=== PATIENT | male | born 1950 | race Caucasian/White ===

== ENCOUNTER 2016-08-14 22:02 | Inpatient (IN) | payer MEDICARE, OTHER ==
--- NOTE | ~2016-08-14 | DS ---
Discharge Summary [facility] [address] [place]. [address] NAME: SUHAS GLORIA : 50 STATUS : DIS IN PAT#: [id number] AGE: 66 ADM/REG DATE : 08/14/16 MR#: [id number] REPORT SERV DATE: 08/30/16 DICTATED BY: ALTON ALVARENGA DATE: 08/29/16 REPORT STATUS : Draft TRANSCRIBED BY: REJI DATE: 08/29/16 Data Collection from hospitalization DISCHARGE DIAGNOSES: 1. Coronary artery disease. 2. Acute anterior wall myocardial sjkyyomlmm-BP-wuqtcsq elevation myocardial infarction. 3. Hypertension. 4. Hypercholesterolemia. 5. Tobacco use. CONSULTATION: Dr. Liborio Alonso. PROCEDURES PERFORMED: 1. Cardiac catheterization, 08/14/2016. 2. Urgent coronary artery bypass grafting x3 with BUCK to the LAD; saphenous vein graft to the posterior descending artery; saphenous vein graft to the second obtuse marginal; VasoView vein harvesting, right lower extremity, 08/15/2016. DISCHARGE MEDICATIONS: Cordarone 200 mg twice a day, Halfprin 81 mg daily, Coreg 3.125 mg twice a day, Xodol one tablet every four hours as needed, Imdur 30 mg daily, Cozaar 12.5 mg daily, Prilosec 40 mg daily, Crestor 20 mg at bedtime. CONDITION AT DISCHARGE: Stable. DISPOSITION: The patient was discharged home on an 1800-calorie cardiac/diabetic diet with activities as instructed. He would follow up with [facility], 09/12/[address] Valentín Verdugo, 09/19/2016. He would follow up at cardiac rehab, 09/10/2016. HOSPITAL COURSE: This is a 66-year-old man, who had been followed by Dr. Verdugo with a cardiac history of multiple stents in the past. He had never undergone coronary artery bypass grafting. He has been doing well from a cardiovascular standpoint, but had been off aspirin for approximately one week prior to prostate biopsy earlier on the day of this presentation. On 08/14/2016, the patient presented to [facility] complaining of severe chest pain. EKG demonstrated marked ST elevation in the early precordial leads consistent with acute anterior wall myocardial infarction and code STEMI was called. He was treated with aspirin, heparin, nitrates, and analgesics. He was transferred to the [facility] and was still having severe chest pain with marked ST elevations on the monitor. He was given additional analgesics and he had sudden relief of the chest pain and normalization of his ST-segment. It was felt that he would need to undergo cardiac catheterization. He was taken to the cardiac analytical lab analyst, where he underwent the above-mentioned procedure by Dr. Liborio Alonso. He tolerated this well and there were no complications. The catheterization showed three-vessel coronary artery disease, but nothing acutely blocked. It was felt that he would need to undergo coronary artery bypass grafting. The following day, he was taken to the operating room where he underwent the above-mentioned procedure. He tolerated this well and there were no complications. On postop day 1, he had shallow inspiration. His incisions were covered. He had positive bowel sounds. On the , O2 was being weaned. He had decreased breath sounds in his lung bases. was started. White count was 16.7. Chest tubes and pacing wires were going to be removed. Discharge Summary [facility] [address] [place]. [address] NAME: SUHAS GLORIA : 50 STATUS : DIS IN PAT#: [id number] AGE: 66 ADM/REG DATE : 08/14/16 MR#: [id number] REPORT SERV DATE: 08/30/16 DICTATED BY: ALTON ALVARENGA DATE: 08/29/16 REPORT STATUS : Draft TRANSCRIBED BY: REJI DATE: 08/29/16 He was on Coreg, aspirin, and Crestor. Routine postop care continued. SCDs/TEDs were in place. He was in a normal sinus rhythm. On 08/19/2016, he had no new complaints. He had no chest pain or palpitations. His incisions were clean, dry, and intact. He had some sternal tenderness. Discharge planning was performed. We encouraged him to ambulate in the [place]. O2 was being weaned. His pulmonary status was improving. On 08/21/2016, he was awake and alert. He was up sitting in a chair. He continued to do well. Discharge instructions were given. Due to his improved and stable condition, he was discharged home with the above-stated instructions. Information collected by: Sarina Lindquist I submit the above information as my discharge summary. TG/MODL Alton Alvarenga M.D. / [id number] CC: Fransisco Samaniego M.D.
--- NOTE | ~2016-08-14 | CN ---
Consultation Report [facility] [address] [place]. [address] NAME: SUHAS GLORIA : 50 STATUS : ADM IN PAT#: [id number] AGE: 66 ADM/REG DATE : 08/14/16 MR#: [id number] REPORT SERV DATE: 08/16/16 DICTATED BY: ALTON ALVARENGA DATE: 08/15/16 REPORT STATUS : Draft TRANSCRIBED BY: MODL DATE: 08/15/16 CONSULT DATE OF CONSULTATION: 08/15/2016 REASON FOR REFERRAL: Evaluation for coronary artery bypass grafting. HISTORY: The patient is a 66-year-old, white male, patient of Dr. Verdugo with a history of multiple stents in the past. He recently had been doing well but had been held off his aspirin for one week prior to a prostate biopsy on the . After the biopsy, he presented to [facility] complaining of severe chest pain and fatigue. EKG showed marked ST elevations consistent with acute myocardial infarction. A code STEMI was called. He was treated with aspirin, heparin, nitrates, and transferred to the [facility]. After presentation to the [facility], his chest pain had subsided after analgesics and heparin. Cardiac Cath was then performed by Dr. Liborio Alonso which showed three-vessel coronary artery disease but nothing acutely blocked. PAST MEDICAL HISTORY: Significant for hypertension, hypercholesterolemia, coronary artery disease. PAST SURGICAL HISTORY: Unknown. SOCIAL HISTORY: He does smoke occasional alcohol. MEDICATIONS: Carvedilol, Crestor, aspirin, and losartan. ALLERGIES: NO KNOWN DRUG ALLERGIES. FAMILY HISTORY: Significant for coronary artery disease in his father's family. REVIEW OF SYSTEMS: Otherwise negative that which was stated above. PHYSICAL EXAMINATION: VITAL SIGNS: He is afebrile and vital signs are currently stable. HEENT: Normocephalic, atraumatic with no scleral icterus. NECK: Supple with no thyromegaly. CHEST: Clear to auscultation bilaterally. HEART: Regular rate and rhythm. No murmurs, rubs, or gallops. ABDOMEN: Soft, nontender, nondistended. EXTREMITIES: Warm with 1+ distal pulses. No clubbing, cyanosis, or edema. MUSCULOSKELETAL: Grossly intact. NEUROLOGIC: Grossly intact. Consultation Report [facility] [address] [place]. [address] NAME: SUHAS GLORIA : 50 STATUS : ADM IN PAT#: [id number] AGE: 66 ADM/REG DATE : 08/14/16 MR#: [id number] REPORT SERV DATE: 08/16/16 DICTATED BY: ALTON ALVARENGA DATE: 08/15/16 REPORT STATUS : Draft TRANSCRIBED BY: REJI DATE: 08/15/16 STUDIES: I did review his cardiac catheterization. Agree with three-vessel coronary artery disease not amenable to percutaneous intervention. PLAN: Three-vessel coronary artery disease in need of coronary artery bypass grafting. This is being scheduled for today in an urgent manner due to his ST-elevation myocardial infarction presentation. I have explained all risks, benefits, and alternatives of surgery to him and his family including but not limited to, bleeding, infection, stroke, and . They understand these risks and wished to proceed with surgery. MARION/REJI Alton Alvarenga M.D. / [id number] CC: Liborio Alonso M.D.
--- NOTE | ~2016-08-14 | OP ---
Record Of Operation [facility] [address] [place]. [address] NAME: SUHAS GLORIA : 50 STATUS : ADM IN PAT#: [id number] AGE: 66 ADM/REG DATE : 08/14/16 MR#: [id number] REPORT SERV DATE: 08/15/16 DICTATED BY: ALTON ALVARENGA DATE: 08/15/16 REPORT STATUS : Draft TRANSCRIBED BY: MODCorby DATE: 08/15/16 DATE OF PROCEDURE: 08/15/2016 PREOPERATIVE DIAGNOSIS: Multivessel coronary artery disease, ST-elevation myocardial infarction. POSTOPERATIVE DIAGNOSIS: Multivessel coronary artery disease, ST-elevation myocardial infarction. PROCEDURE: 1. Urgent coronary artery bypass grafting x3 with left internal mammary artery to the left anterior descending artery, saphenous vein graft to the posterior descending artery, saphenous vein graft to the 2nd obtuse marginal. 2. VasoView vein harvesting, right lower extremity. SURGEON: Alton Alvarenga M.D. PULL OVER MACHINE OPERATOR: Eladio. ANESTHESIA: Elton Pope M.D. CARDIOPULMONARY BYPASS TIME: 75 minutes. CROSS-CLAMP TIME: 60 minutes. FINDINGS: Good conduit and targets, normal ejection fraction. Wires were atrial and ventricular x2. Tubes were left pleural x1 and mediastinal x2. COMPLICATIONS: None. CONDITION: Fair to the ICU on no drips and normal sinus rhythm. PROCEDURE IN DETAIL: After informed consent was obtained from the patient, he was brought to the operating room, laid in a supine position, and general anesthesia was induced. Transesophageal echocardiogram was attempted but due to his Jj's esophagitis, was abandoned. He was prepped and draped in normal fashion. VasoView vein harvesting commenced on the right lower extremity by making an incision just medial to the right knee and dissection carried proximally and distally. All tributaries were coagulated. Counter incisions were made and the vein was removed. All tributaries were then clipped. Skin incisions were closed using Vicryl sutures. A median sternotomy was performed in usual fashion and the left yanci-sternum elevated using a Rultract retractor. The left pleura was taken down in its entirety and the left internal mammary artery harvested from the chest wall using Bovie electrocautery. All tributaries were clipped. After systemic heparinization, the distal end was severed from the chest wall and good blood flow was noted. Papaverine was soaked on the vessel wall. Pericardium was opened in the midline and tacked to the skin using multiple silk sutures. Aortic cannulation was performed in the Record Of Operation [address] [place]. [address] NAME: SUHAS GLORIA : 50 STATUS : ADM IN PAT#: [id number] AGE: 66 ADM/REG DATE : 08/14/16 MR#: [id number] REPORT SERV DATE: 08/15/16 DICTATED BY: ALTON ALVARENGA DATE: 08/15/16 REPORT STATUS : Draft TRANSCRIBED BY: MODL DATE: 08/15/16 proximal aortic arch and venous cannulation performed in the right atrial appendage. The patient was placed on cardiopulmonary bypass and cooled to approximately 35 degrees Celsius. A cardioplegia/vent cannula was placed in the ascending aorta. Cross-clamp was placed across the aorta and 800 mL of cold blood cardioplegia given at the aortic root with excellent arrest. Base of the heart was elevated and the posterior descending artery identified. This was dissected using a Otero blade and extended using Augustin scissors. Saphenous vein was placed in a reverse manner, a masters created, and an end-to-side anastomosis was performed using a running 7-0 Deklene suture. Heart was filled and the vein sized to the ascending aorta around the right side of the heart. Antegrade cardioplegia was given. The 2nd obtuse marginal artery was then identified, dissected using a Otero blade, and extended using Augustin scissors. Remaining portion of the saphenous vein was placed in a reverse manner, a masters created, and an end-to-side anastomosis was performed using a running 7-0 Deklene suture. Heart was filled and the vein sized to the ascending aorta around the left side of the heart. Antegrade cardioplegia was given. Midportion of the LAD artery was identified, dissected using a Otero blade, and extended using Augustin scissors. Distal end of the mammary artery was fashioned to a masters and end-to-side anastomosis was performed using a running 8-0 Deklene suture. Bulldog was released and excellent blood flow was noted distally. Fascia of the mammary was tacked down to the LV wall using two 6-0 Prolene sutures. Antegrade cardioplegia was given. An 11 blade knife was used to make two separate stab incisions on the ascending aorta and a 4.5 mm punch used to create two separate aortotomies. Two separate proximal anastomoses were performed using a running 6-0 Prolene suture for each. Heart was filled and de-aired through the root vent. Cross-clamp was removed. Ventricular pacing wires were placed on the right ventricular surface, and atrial pacing wires were placed on the right atrial surface. A left pleural and posterior pericardial chest tube were placed. After the patient achieved normothermia, he was weaned from cardiopulmonary bypass without difficulty. Doppler flow analysis was performed on all three tributaries and all three had excellent flow. Protamine was administered. The patient was decannulated. After surgical hemostasis was achieved, an anterior pericardial chest tube was placed and the sternum reapproximated using the sternal cable system. The skin, subcutaneous, and subcuticular tissue were closed using running Vicryl and Monocryl sutures. Overall, the patient tolerated procedure well and was transported to the ICU in fair condition on no drips in normal sinus rhythm. CCR/MODL Alton Alvarenga M.D. / [id number] CC: Liborio Alonso M.D.
--- NOTE | ~2016-08-14 | HP ---
History And Physical [facility] [address] [place]. [address] NAME: SUHAS GLORIA : 50 STATUS : ADM IN PAT#: [id number] AGE: 66 ADM/REG DATE : 08/14/16 MR#: [id number] REPORT SERV DATE: 08/15/16 DICTATED BY: MICHELLE ALONSO DATE: 08/14/16 REPORT STATUS : Draft TRANSCRIBED BY: MODCorby DATE: 08/14/16 DATE OF ADMISSION: 08/14/2016 HISTORY OF PRESENT ILLNESS: The patient is a 66-year-old white male, who was followed by Dr. Verdugo with a cardiac history of multiple stents in the past. He has never undergone coronary artery bypass grafting. The patient had been doing well from a cardiovascular standpoint, but had been off aspirin for approximately 1 week prior to prostate biopsy earlier in the day, the day of presentation. On 08/14/2016, the patient presented to [facility] complaining of severe chest pain. EKG demonstrated marked ST elevated in the early precordial leads consistent with acute anterior wall myocardial infarction, a code STEMI was called. He was treated with aspirin, heparin, nitrates, and analgesics. He was transferred to the labor arbitrator hearing office. On presentation to the labor arbitrator hearing office at the [facility], he was still having severe chest pain, with marked ST elevated elevations on the monitor. He was given additional analgesics, and he had sudden relief of the chest and normalization of his ST segements. The patient denies recent similar chest pains. PAST MEDICAL HISTORY: Remarkable for hypertension, elevated cholesterol, and coronary artery disease. SOCIAL HISTORY: He continues to smoke. MEDICATIONS: His outpatient medications include carvedilol 3.125 mg b.i.d., Crestor daily, aspirin daily, and Losartan daily. ALLERGIES: HE DENIES DRUG ALLERGIES. FAMILY HISTORY: Noncontributory. REVIEW OF SYSTEMS: Negative except as above. PHYSICAL EXAMINATION: GENERAL: He is a well-developed, well-nourished white male in no acute distress. He is alert, oriented, and cooperative. NECK: He has no jugular venous distension. CHEST: Clear. CARDIAC: Unremarkable. ABDOMEN: Benign. EXTREMITIES: Without cyanosis, clubbing, or edema. IMPRESSION: Acute anterior wall myocardial infarction - STEMI. PLAN: Proceed with emergent coronary angiography. Further workup with therapy would be History And Physical [facility] [address] [place] [address] NAME: SUHAS GLORIA : 50 STATUS : ADM IN PAT#: [id number] AGE: 66 ADM/REG DATE : 08/14/16 MR#: [id number] REPORT SERV DATE: 08/15/16 DICTATED BY: MICHELLE ALONSO DATE: 08/14/16 REPORT STATUS : Draft TRANSCRIBED BY: REJI DATE: 08/14/16 based on results of the initial diagnostic testing. TR/REJI Michelle Alonso M.D. / [id number] CC: Valentín Verdugo Jr., M.D.
--- NOTE | ~2016-08-14 | OP ---
Record Of Operation [facility] [address] [place]. [address] NAME: SUHAS GLORIA : 50 STATUS : ADM IN PAT#: [id number] AGE: 66 ADM/REG DATE : 08/14/16 MR#: [id number] REPORT SERV DATE: 08/15/16 DICTATED BY: MICHELLE ALONSO DATE: 08/14/16 REPORT STATUS : Draft TRANSCRIBED BY: MODL DATE: 08/14/16 DATE OF PROCEDURE: 08/14/2016 CARDIAC CATHETERIZATION REPORT BULK PLANT SUPERVISOR: Michelle Alonso M.D. INDICATION FOR PROCEDURE: Acute myocardial infarction - STEMI. POSTPROCEDURE DIAGNOSIS: Acute myocardial infarction - ST-segment elevation myocardial infarction. HEMODYNAMICS: The left ventricular end-diastolic pressure was 80 mmHg, and there was no gradient or pullback across the aortic valve. DESCRIPTION OF PROCEDURE: The patient was brought to the livestock laborer emergently by an ambulance with the diagnosis of STEMI. Emergency coronary angiography was performed. After informed consent, the right inguinal area was sterilely draped and prepped. Local anesthesia was accomplished with local infiltration of Xylocaine. A 6-[place] sheath was placed without difficulty in the right femoral artery. Utilizing first a 6-[place] 4 right Jennie catheter and subsequent 6-[place] 4 left Jennie guiding catheter with side holes, the coronary angiogram was performed. The left anterior descending artery had an apparent stent in the proximal portion with at least 90% stenosis, with MACARIO-3 flow. This was assumed to be the culprit vessel, though flow had spontaneously returned. The left circumflex artery had an approximately 60% to 70% stenosis in its ongoing portion giving off all of the large obtuse marginal branches. The right coronary artery, which was a large dominant vessel, had a stent in its proximal portion, which had approximately 70% stenosis, and then subsequently discrete 90% stenosis just prior to the bifurcation. The left ventriculogram was performed utilizing 13 mL/sec for 3 seconds for a total of 39 mL of contrast, it was recorded cineangiographically. It was recorded in a single plane. The ejection fraction was estimated at 70% and no definite segmental wall motion abnormalities were noted. There was some mitral regurgitation noted, but this was felt to be secondary to catheter-induced ventricular tachycardia. IMPRESSION: 1. ST-segment elevation myocardial infarction - spontaneous resolution of MACARIO-3 flow in the proximal portion of the left anterior descending artery with resolution of chest pain and marked ST elevations. 2. Severe three-vessel coronary artery disease as described. 3. Preserved left ventricular function. PLAN: We will continue the patient tonight on aspirin, heparin continuous infusion. Continued outpatient beta-blockers tonight. Consultation by phone was obtained with Dr. Brown regarding the patient's clinical status, and consultation for the morning for urgent coronary artery bypass grafting to be performed Record Of Operation [address] [address] NAME: SUHAS GLORIA : 50 STATUS : ADM IN PAT#: [id number] AGE: 66 ADM/REG DATE : 08/14/16 MR#: [id number] REPORT SERV DATE: 08/15/16 DICTATED BY: MICHELLE ALONSO DATE: 08/14/16 REPORT STATUS : Draft TRANSCRIBED BY: REJI DATE: 08/14/16 on 08/15/[address] Brown agreed to be available during the night for any emergent clinical changes, and to see the patient in the morning to arrange for urgent coronary artery bypass grafting later in the day. TR/REJI Michelle Alonso M.D. / [id number] CC: Michelle Alonso M.D.
[~2016-08-14 22:02] MED LIST: ALTA2.5 PO; ASAB PO; BENICAR20 PO; COREG3 PO; CRESTOR20 MG PO; CRESTOR40 MG PO; FOLIC PO; PLAVIX PO; PRILO PO
[2016-08-14] MEDS ORDERED: HALF81 PO (22:06)
[2016-08-14] MEDS ORDERED: COREG3 PO (22:07)
[2016-08-14] MEDS ORDERED: PRILOSEC40 MG PO (22:07)
[2016-08-14] MEDS ORDERED: CIP5 PO (22:07)
[2016-08-14] MEDS ORDERED: COZ25 PO (22:08)
[2016-08-14] MEDS ORDERED: CRESTOR20 MG PO (22:08)
[2016-08-15 01:16] LABS: CK-MB 14.7 NG/ML
[2016-08-15 01:17] LABS: CKMB INDEX (NOT ORD) 6.3
[2016-08-15 05:20] LABS: BASOPHILS 0.1 %; BASOPHILS ABSOLUTE 0.01 10/3/uL (0.0-0.16); EOSINOPHILS 0.7 %; EOSINOPHILS ABSOLUTE 0.08 10/3/uL (0.0-0.53); HEMATOCRIT 41.1 % (40.0-51.0); HEMOGLOBIN 14.1 g/dL (13.6-17.8); IMMATURE GRANULOCYTES 0.3 %; IMMATURE GRANULOCYTES ABSOLUTE 0.04 10/3/uL (0.0-0.11); LYMPHOCYTES 33.1 %; LYMPHOCYTES ABSOLUTE 4.02 10/3/uL (0.67-4.30); MEAN CORPUS HGB CONC 34.3 g/dL (32.0-36.0); MEAN CORPUSCULAR HEMOGLOB 31.5 pg (26.0-34.0); MEAN CORPUSCULAR VOLUME 91.7 fL (80-100); MEAN PLATELET VOLUME 10.9 fL (9.2-13.0); MONOCYTES 7.4 %; NEUTROPHILS 58.4 %; NEUTROPHILS ABSOLUTE 7.09 10/3/uL (2.02-8.40); PLATELET COUNT 212 10/3/uL (150-400); RBC DISTRIBUTION WIDTH 14.5 % (12.0-16.0); RED CELL COUNT 4.48 10/6/uL (4.7-6.1); WHITE BLOOD CELLS 12.1 10/3/uL (4.5-10.5)
[2016-08-15 05:23] LABS: CALCIUM, SERUM 8.3 MG/DL (8.5-10.4); SODIUM, SERUM 139 MMOL/L (135-148)
[2016-08-15 05:30] LABS: BE (BASE EXCESS) -1.4 MEQ/L (0 +/- 2.5); CARBOXYHEMOGLOBIN 2.1 % (0-3); HCO3 (ACTUAL BICARBONATE) 23.6 MEQ/L (23-27); HEMOBLOGIN CONTENT 14.2 G/DL (14-18); INSTRUMENT SERIAL # 8083; METHEMOGLOBIN 0.1 % (0-3); O2 CONTENT 18.1 VOL% (18-24); OPERATOR ID 334499; PCO2 (CO2 TENSION) 41 MMHG (35-45); PO2 (O2 TENSION) 66 MMHG (79-93); SAMPLE Arterial; pH 7.38 (7.37-7.43)
[2016-08-15 05:35] LABS: MANUAL DIFF NO %
[2016-08-15 05:40] LABS: % IRON SAT 20 % (20-50); A/G RATIO 0.9 (0.7-1.9); ALKALINE PHOSPHATASE 74 U/L (45-117); CHLORIDE, SERUM 106 MMOL/L (96-112); CHOL/HDL RATIO(NOT ORDER) 5.8 (0-5); CHOLESTEROL 167 MG/DL (< 200); CK-MB 49.5 NG/ML; CO2 (CARBON DIOXIDE) 24 MMOL/L (24-34); CPK 487 U/L (0-200); CREATININE 0.93 MG/DL (0.70-1.30); GFR AFRICAN AMERICAN 99 ML/MIN (>=60); GFR NON AFRICAN AMERICAN 85 ML/MIN (>=60); GLOBULIN 3.4 G/DL (2.5-4.1); GLUCOSE, SERUM 116 MG/DL (60-99); HDL CHOLESTEROL 29 MG/DL (> 39); IRON BINDING CAPACITY 297 MCG/DL (250-450); IRON, SERUM 58 MCG/DL (35-150); LDL CHOLESTEROL 61 MG/DL (< 130); NON-HDL CHOLESTEROL 138 MG/DL (< 160); POTASSIUM, SERUM 4.2 MMOL/L (3.5-5.3); SGOT(AST) 52 U/L (5-40); SGPT(ALT) 28 U/L (5-65); TOTAL BILIRUBIN 0.4 MG/DL (0-1.2); TOTAL PROTEIN 6.4 G/DL (6.0-8.5); TRIGLYCERIDE 389 MG/DL (< 150)
[2016-08-15 05:41] LABS: BUN (BLOOD UREA NITROGEN) 14 MG/DL (6-23); CKMB INDEX (NOT ORD) 10.2
[2016-08-15 05:53] LABS: INTERNATIONAL NORMAL RATI 1.1 UNITS (-); PROTIME (NOT ORD) 14.3 SEC (12.0-14.5)
[2016-08-15 05:54] LABS: PARTIAL THROMBO TIME 25.2 SEC (22.5-37.2)
[2016-08-15 06:51] LABS: ASCORBIC ACID (UR NOT ORDER) NEG (NEG); BILIRUBIN, URINE NEGATIVE (NEG); KETONE, URINE NEGATIVE (NEG); LEUKOCYTE ESTERASE(NOT OR NEG (NEG); WBC (NOT ORDERED) (RFLEX) 2 (0-5)
[2016-08-15 15:07] LABS: BE (BASE EXCESS) -4.4 MEQ/L (0 +/- 2.5); CARBOXYHEMOGLOBIN 0.4 % (0-3); HCO3 (ACTUAL BICARBONATE) 21.9 MEQ/L (23-27); HEMOBLOGIN CONTENT 12.4 G/DL (14-18); INSTRUMENT SERIAL # 11843; METHEMOGLOBIN 0.4 % (0-3); MODE SIMV; O2 CONTENT 17.3 VOL% (18-24); OPERATOR ID 18642; PCO2 (CO2 TENSION) 45 MMHG (35-45); PO2 (O2 TENSION) 161 MMHG (79-93); PRESSURE SUPPORT 0 cm.H2O; SAMPLE Arterial; TIDAL VOLUME 600 ML; pH 7.31 (7.37-7.43)
[2016-08-15 15:26] LABS: BASOPHILS 0.2 %; BASOPHILS ABSOLUTE 0.02 10/3/uL (0.0-0.16); EOSINOPHILS 1.4 %; EOSINOPHILS ABSOLUTE 0.18 10/3/uL (0.0-0.53); HEMOGLOBIN 11.5 g/dL (13.6-17.8); IMMATURE GRANULOCYTES 0.3 %; IMMATURE GRANULOCYTES ABSOLUTE 0.04 10/3/uL (0.0-0.11); LYMPHOCYTES 22.4 %; LYMPHOCYTES ABSOLUTE 2.87 10/3/uL (0.67-4.30); MEAN CORPUSCULAR HEMOGLOB 31.5 pg (26.0-34.0); MEAN CORPUSCULAR VOLUME 92.6 fL (80-100); MEAN PLATELET VOLUME 10.7 fL (9.2-13.0); MONOCYTES 2.8 %; MONOCYTES ABSOLUTE 0.36 10/3/uL (0.21-1.20); NEUTROPHILS 72.9 %; NEUTROPHILS ABSOLUTE 9.36 10/3/uL (2.02-8.40); RBC DISTRIBUTION WIDTH 14.5 % (12.0-16.0); RED CELL COUNT 3.65 10/6/uL (4.7-6.1); WHITE BLOOD CELLS 12.8 10/3/uL (4.5-10.5)
[2016-08-15 15:29] LABS: HEMATOCRIT 33.8 % (40.0-51.0); MANUAL DIFF NO %; PLATELET COUNT 146 10/3/uL (150-400)
[2016-08-15 15:35] LABS: INTERNATIONAL NORMAL RATI 1.3 UNITS (-); PARTIAL THROMBO TIME 29.2 SEC (22.5-37.2); PROTIME (NOT ORD) 16.3 SEC (12.0-14.5)
[2016-08-15 15:46] LABS: BUN (BLOOD UREA NITROGEN) 12 MG/DL (6-23); CALCIUM, SERUM 8.8 MG/DL (8.5-10.4); CHLORIDE, SERUM 113 MMOL/L (96-112); CK-MB 49.8 NG/ML; CO2 (CARBON DIOXIDE) 24 MMOL/L (24-34); CPK 522 U/L (0-200); CREATININE 1.13 MG/DL (0.70-1.30); GFR AFRICAN AMERICAN 78 ML/MIN (>=60); GFR NON AFRICAN AMERICAN 67 ML/MIN (>=60)
[2016-08-15 15:53] LABS: GLUCOSE, SERUM 84 MG/DL (60-99); SODIUM, SERUM 146 MMOL/L (135-148)
[2016-08-15 15:54] LABS: CKMB INDEX (NOT ORD) 9.5
[2016-08-15 20:52] LABS: BE (BASE EXCESS) -5.7 MEQ/L (0 +/- 2.5); CARBOXYHEMOGLOBIN 0.6 % (0-3); DEVICE NC; HCO3 (ACTUAL BICARBONATE) 20.5 MEQ/L (23-27); INSTRUMENT SERIAL # 11843; METHEMOGLOBIN 0.2 % (0-3); O2 CONTENT 16.4 VOL% (18-24); OPERATOR ID 13744; PCO2 (CO2 TENSION) 43 MMHG (35-45); PO2 (O2 TENSION) 65 MMHG (79-93); SAMPLE Arterial
[2016-08-15 21:52] LABS: HEMATOCRIT 36.5 % (40.0-51.0); HEMOGLOBIN 12.3 g/dL (13.6-17.8)
[2016-08-15 22:34] LABS: BE (BASE EXCESS) -2.6 MEQ/L (0 +/- 2.5); CARBOXYHEMOGLOBIN 0.5 % (0-3); DEVICE HFNC; HCO3 (ACTUAL BICARBONATE) 23.8 MEQ/L (23-27); HEMOBLOGIN CONTENT 12.3 G/DL (14-18); INSTRUMENT SERIAL # 11843; METHEMOGLOBIN 0.3 % (0-3); O2 CONTENT 15.9 VOL% (18-24); OPERATOR ID 13744; PCO2 (CO2 TENSION) 48 MMHG (35-45); PO2 (O2 TENSION) 71 MMHG (79-93); SAMPLE Arterial; pH 7.32 (7.37-7.43)
[2016-08-15 22:55] LABS: CK-MB 34.9 NG/ML; POTASSIUM, SERUM 4.5 MMOL/L (3.5-5.3)
[2016-08-15 22:56] LABS: CKMB INDEX (NOT ORD) 6.4
[2016-08-16 03:51] LABS: BASOPHILS 0.1 %; BASOPHILS ABSOLUTE 0.01 10/3/uL (0.0-0.16); EOSINOPHILS 0 %; HEMATOCRIT 34.7 % (40.0-51.0); HEMOGLOBIN 11.8 g/dL (13.6-17.8); IMMATURE GRANULOCYTES 0.2 %; IMMATURE GRANULOCYTES ABSOLUTE 0.02 10/3/uL (0.0-0.11); LYMPHOCYTES 11.4 %; LYMPHOCYTES ABSOLUTE 1.33 10/3/uL (0.67-4.30); MEAN CORPUSCULAR HEMOGLOB 32.1 pg (26.0-34.0); MEAN CORPUSCULAR VOLUME 94.3 fL (80-100); MONOCYTES 10.4 %; MONOCYTES ABSOLUTE 1.21 10/3/uL (0.21-1.20); NEUTROPHILS 77.9 %; NEUTROPHILS ABSOLUTE 9.07 10/3/uL (2.02-8.40); PLATELET COUNT 141 10/3/uL (150-400); RBC DISTRIBUTION WIDTH 14.9 % (12.0-16.0); RED CELL COUNT 3.68 10/6/uL (4.7-6.1); WHITE BLOOD CELLS 11.6 10/3/uL (4.5-10.5)
[2016-08-16 03:52] LABS: MANUAL DIFF NO %
[2016-08-16 03:55] LABS: INTERNATIONAL NORMAL RATI 1.3 UNITS (-)
[2016-08-16 03:57] LABS: BUN (BLOOD UREA NITROGEN) 14 MG/DL (6-23); CALCIUM, SERUM 7.9 MG/DL (8.5-10.4); CHLORIDE, SERUM 113 MMOL/L (96-112); CO2 (CARBON DIOXIDE) 21 MMOL/L (24-34); CREATININE 0.97 MG/DL (0.70-1.30); GFR AFRICAN AMERICAN 94 ML/MIN (>=60); GFR NON AFRICAN AMERICAN 81 ML/MIN (>=60); GLUCOSE, SERUM 118 MG/DL (60-99); POTASSIUM, SERUM 4.3 MMOL/L (3.5-5.3); SODIUM, SERUM 146 MMOL/L (135-148)
[2016-08-16 16:06] LABS: HEMOGLOBIN 11.7 g/dL (13.6-17.8)
[2016-08-16 16:17] LABS: POTASSIUM, SERUM 3.9 MMOL/L (3.5-5.3)
[2016-08-17 03:53] LABS: BASOPHILS 0.1 %; BASOPHILS ABSOLUTE 0.01 10/3/uL (0.0-0.16); EOSINOPHILS 0.2 %; EOSINOPHILS ABSOLUTE 0.03 10/3/uL (0.0-0.53); HEMATOCRIT 34.5 % (40.0-51.0); HEMOGLOBIN 12.2 g/dL (13.6-17.8); IMMATURE GRANULOCYTES 0.3 %; IMMATURE GRANULOCYTES ABSOLUTE 0.05 10/3/uL (0.0-0.11); LYMPHOCYTES 18.9 %; LYMPHOCYTES ABSOLUTE 3.15 10/3/uL (0.67-4.30); MEAN CORPUS HGB CONC 35.4 g/dL (32.0-36.0); MEAN CORPUSCULAR HEMOGLOB 33.2 pg (26.0-34.0); MEAN PLATELET VOLUME 11.5 fL (9.2-13.0); MONOCYTES 12.9 %; MONOCYTES ABSOLUTE 2.16 10/3/uL (0.21-1.20); NEUTROPHILS 67.6 %; NEUTROPHILS ABSOLUTE 11.28 10/3/uL (2.02-8.40); PLATELET COUNT 142 10/3/uL (150-400); RBC DISTRIBUTION WIDTH 15.2 % (12.0-16.0); RED CELL COUNT 3.67 10/6/uL (4.7-6.1)
[2016-08-17 03:54] LABS: MANUAL DIFF NO %; WHITE BLOOD CELLS 16.7 10/3/uL (4.5-10.5)
[2016-08-17 04:06] LABS: BUN (BLOOD UREA NITROGEN) 20 MG/DL (6-23); CALCIUM, SERUM 8.9 MG/DL (8.5-10.4); CHLORIDE, SERUM 106 MMOL/L (96-112); CO2 (CARBON DIOXIDE) 25 MMOL/L (24-34); CREATININE 0.87 MG/DL (0.70-1.30); GFR AFRICAN AMERICAN 104 ML/MIN (>=60); GFR NON AFRICAN AMERICAN 90 ML/MIN (>=60); GLUCOSE, SERUM 122 MG/DL (60-99); SODIUM, SERUM 141 MMOL/L (135-148)
[2016-08-17 15:59] LABS: POTASSIUM, SERUM 4.1 MMOL/L (3.5-5.3)
[2016-08-18 04:18] LABS: BASOPHILS 0.1 %; BASOPHILS ABSOLUTE 0.02 10/3/uL (0.0-0.16); EOSINOPHILS 1.8 %; EOSINOPHILS ABSOLUTE 0.25 10/3/uL (0.0-0.53); HEMATOCRIT 34.9 % (40.0-51.0); HEMOGLOBIN 11.9 g/dL (13.6-17.8); IMMATURE GRANULOCYTES 0.3 %; IMMATURE GRANULOCYTES ABSOLUTE 0.04 10/3/uL (0.0-0.11); LYMPHOCYTES 19.3 %; LYMPHOCYTES ABSOLUTE 2.73 10/3/uL (0.67-4.30); MEAN CORPUS HGB CONC 34.1 g/dL (32.0-36.0); MEAN CORPUSCULAR HEMOGLOB 31.8 pg (26.0-34.0); MEAN CORPUSCULAR VOLUME 93.3 fL (80-100); MEAN PLATELET VOLUME 11.5 fL (9.2-13.0); MONOCYTES 12.5 %; MONOCYTES ABSOLUTE 1.77 10/3/uL (0.21-1.20); NEUTROPHILS ABSOLUTE 9.33 10/3/uL (2.02-8.40); PLATELET COUNT 145 10/3/uL (150-400); RBC DISTRIBUTION WIDTH 14.7 % (12.0-16.0); RED CELL COUNT 3.74 10/6/uL (4.7-6.1); WHITE BLOOD CELLS 14.1 10/3/uL (4.5-10.5)
[2016-08-18 04:20] LABS: MANUAL DIFF NO %
[2016-08-18 04:30] LABS: BUN (BLOOD UREA NITROGEN) 21 MG/DL (6-23); CHLORIDE, SERUM 97 MMOL/L (96-112); CREATININE 0.79 MG/DL (0.70-1.30); GFR AFRICAN AMERICAN 108 ML/MIN (>=60); GFR NON AFRICAN AMERICAN 94 ML/MIN (>=60); GLUCOSE, SERUM 118 MG/DL (60-99); POTASSIUM, SERUM 3.7 MMOL/L (3.5-5.3); SODIUM, SERUM 136 MMOL/L (135-148)
[2016-08-18 04:32] LABS: CO2 (CARBON DIOXIDE) 31 MMOL/L (24-34)
[2016-08-19 05:18] LABS: BASOPHILS 0.2 %; BASOPHILS ABSOLUTE 0.02 10/3/uL (0.0-0.16); EOSINOPHILS 3.1 %; EOSINOPHILS ABSOLUTE 0.36 10/3/uL (0.0-0.53); HEMOGLOBIN 11.1 g/dL (13.6-17.8); IMMATURE GRANULOCYTES 0.3 %; IMMATURE GRANULOCYTES ABSOLUTE 0.04 10/3/uL (0.0-0.11); LYMPHOCYTES 18.8 %; LYMPHOCYTES ABSOLUTE 2.21 10/3/uL (0.67-4.30); MEAN CORPUS HGB CONC 34.7 g/dL (32.0-36.0); MEAN CORPUSCULAR HEMOGLOB 31.6 pg (26.0-34.0); MEAN CORPUSCULAR VOLUME 91.2 fL (80-100); MEAN PLATELET VOLUME 11.2 fL (9.2-13.0); MONOCYTES 12.2 %; MONOCYTES ABSOLUTE 1.44 10/3/uL (0.21-1.20); NEUTROPHILS 65.4 %; NEUTROPHILS ABSOLUTE 7.69 10/3/uL (2.02-8.40); PLATELET COUNT 166 10/3/uL (150-400); RBC DISTRIBUTION WIDTH 14.4 % (12.0-16.0); RED CELL COUNT 3.51 10/6/uL (4.7-6.1); WHITE BLOOD CELLS 11.8 10/3/uL (4.5-10.5)
[2016-08-19 05:22] LABS: INTERNATIONAL NORMAL RATI 1.2 UNITS (-)
[2016-08-19 05:24] LABS: BUN (BLOOD UREA NITROGEN) 24 MG/DL (6-23); CALCIUM, SERUM 9.4 MG/DL (8.5-10.4); CHLORIDE, SERUM 96 MMOL/L (96-112); CO2 (CARBON DIOXIDE) 27 MMOL/L (24-34); CREATININE 0.85 MG/DL (0.70-1.30); GFR AFRICAN AMERICAN 105 ML/MIN (>=60); GFR NON AFRICAN AMERICAN 91 ML/MIN (>=60); GLUCOSE, SERUM 121 MG/DL (60-99); POTASSIUM, SERUM 3.7 MMOL/L (3.5-5.3); SODIUM, SERUM 133 MMOL/L (135-148)
[2016-08-19 05:25] LABS: MANUAL DIFF NO %
[2016-08-20 05:49] LABS: BASOPHILS 0.1 %; BASOPHILS ABSOLUTE 0.01 10/3/uL (0.0-0.16); EOSINOPHILS 3.6 %; EOSINOPHILS ABSOLUTE 0.39 10/3/uL (0.0-0.53); HEMATOCRIT 32.1 % (40.0-51.0); HEMOGLOBIN 11.2 g/dL (13.6-17.8); IMMATURE GRANULOCYTES 0.2 %; IMMATURE GRANULOCYTES ABSOLUTE 0.02 10/3/uL (0.0-0.11); LYMPHOCYTES 18.7 %; LYMPHOCYTES ABSOLUTE 2.05 10/3/uL (0.67-4.30); MEAN CORPUS HGB CONC 34.9 g/dL (32.0-36.0); MEAN CORPUSCULAR VOLUME 91.7 fL (80-100); MEAN PLATELET VOLUME 10.8 fL (9.2-13.0); MONOCYTES 13.1 %; MONOCYTES ABSOLUTE 1.43 10/3/uL (0.21-1.20); NEUTROPHILS 64.3 %; NEUTROPHILS ABSOLUTE 7.05 10/3/uL (2.02-8.40); PLATELET COUNT 193 10/3/uL (150-400); RBC DISTRIBUTION WIDTH 14.2 % (12.0-16.0)
[2016-08-20 05:53] LABS: MANUAL DIFF NO %
[2016-08-20 06:04] LABS: BUN (BLOOD UREA NITROGEN) 26 MG/DL (6-23); CALCIUM, SERUM 9.3 MG/DL (8.5-10.4); CHLORIDE, SERUM 93 MMOL/L (96-112); CO2 (CARBON DIOXIDE) 29 MMOL/L (24-34); CREATININE 0.94 MG/DL (0.70-1.30); GFR AFRICAN AMERICAN 98 ML/MIN (>=60); GFR NON AFRICAN AMERICAN 84 ML/MIN (>=60); GLUCOSE, SERUM 111 MG/DL (60-99); POTASSIUM, SERUM 3.9 MMOL/L (3.5-5.3); SODIUM, SERUM 133 MMOL/L (135-148)
[2016-08-21 06:24] LABS: BASOPHILS 0.1 %; BASOPHILS ABSOLUTE 0.01 10/3/uL (0.0-0.16); EOSINOPHILS 3.5 %; EOSINOPHILS ABSOLUTE 0.37 10/3/uL (0.0-0.53); HEMATOCRIT 31.3 % (40.0-51.0); HEMOGLOBIN 10.7 g/dL (13.6-17.8); IMMATURE GRANULOCYTES 0.4 %; IMMATURE GRANULOCYTES ABSOLUTE 0.04 10/3/uL (0.0-0.11); LYMPHOCYTES 24.4 %; LYMPHOCYTES ABSOLUTE 2.55 10/3/uL (0.67-4.30); MEAN CORPUS HGB CONC 34.2 g/dL (32.0-36.0); MEAN CORPUSCULAR HEMOGLOB 31.3 pg (26.0-34.0); MEAN CORPUSCULAR VOLUME 91.5 fL (80-100); MEAN PLATELET VOLUME 11.2 fL (9.2-13.0); MONOCYTES 13.1 %; MONOCYTES ABSOLUTE 1.37 10/3/uL (0.21-1.20); NEUTROPHILS 58.5 %; NEUTROPHILS ABSOLUTE 6.13 10/3/uL (2.02-8.40); PLATELET COUNT 240 10/3/uL (150-400); RBC DISTRIBUTION WIDTH 14.3 % (12.0-16.0); RED CELL COUNT 3.42 10/6/uL (4.7-6.1); WHITE BLOOD CELLS 10.5 10/3/uL (4.5-10.5)
[2016-08-21 06:25] LABS: MANUAL DIFF NO %
[2016-08-21 06:37] LABS: BUN (BLOOD UREA NITROGEN) 25 MG/DL (6-23); CALCIUM, SERUM 8.9 MG/DL (8.5-10.4); CHLORIDE, SERUM 95 MMOL/L (96-112); CO2 (CARBON DIOXIDE) 29 MMOL/L (24-34); CREATININE 0.87 MG/DL (0.70-1.30); GFR AFRICAN AMERICAN 104 ML/MIN (>=60); GFR NON AFRICAN AMERICAN 90 ML/MIN (>=60); GLUCOSE, SERUM 98 MG/DL (60-99); POTASSIUM, SERUM 3.8 MMOL/L (3.5-5.3); SODIUM, SERUM 134 MMOL/L (135-148)
[2016-08-21] MEDS ORDERED: CORDARONE PO (12:47)
[2016-08-21] MEDS ORDERED: IMDUR30 PO (12:52)
[2016-08-21] MEDS ORDERED: XODOL 10-300 T1 EACH PO (13:07)
== END 2016-08-21 15:57 | disposition home or self-care (01) | DRG 234 ==
LOC: SSU2 22:02 → CCU 23:34 → SDC/OF 08-15 10:00 → CVICU 08-15 13:35 → 5NO 08-18 11:57
PROVIDERS: Internal Medicine Cardiovascular Disease; Thoracic Surgery (Cardiothoracic Vascular Surgery)
PROC: 4A023N7 Measurement of Cardiac Sampling and Pressure, Left Heart, Percutaneous Approach (ICD-10-PCS; principal; 2016-08-14)
PROC: 021109W Bypass Coronary Artery, Two Arteries from Aorta with Autologous Venous Tissue, Open Approach (ICD-10-PCS; 2016-08-14)
PROC: B2151ZZ Fluoroscopy of Left Heart using Low Osmolar Contrast (ICD-10-PCS; 2016-08-14)
PROC: B2111ZZ Fluoroscopy of Multiple Coronary Arteries using Low Osmolar Contrast (ICD-10-PCS; 2016-08-14)
PROC: 02100Z9 Bypass Coronary Artery, One Artery from Left Internal Mammary, Open Approach (ICD-10-PCS; 2016-08-14)
PROC: 06BP0ZZ Excision of Right Saphenous Vein, Open Approach (ICD-10-PCS; 2016-08-15)
PROC: 5A1221Z Performance of Cardiac Output, Continuous (ICD-10-PCS; 2016-08-15)
PROC: B246ZZ4 Ultrasonography of Right and Left Heart, Transesophageal (ICD-10-PCS; 2016-08-15)
DX: I21.09 ST elevation (STEMI) myocardial infarction involving other coronary artery of anterior wall (principal); I47.2 Ventricular tachycardia; I10 Essential (primary) hypertension; I25.10 Atherosclerotic heart disease of native coronary artery without angina pectoris; E78.5 Hyperlipidemia, unspecified; Z95.5 Presence of coronary angioplasty implant and graft; K21.9 Gastro-esophageal reflux disease without esophagitis; F17.210 Nicotine dependence, cigarettes, uncomplicated; Z88.8 Allergy status to other drugs, medicaments and biological substances; Z79.82 Long term (current) use of aspirin
CPT/HCPCS: 31720; 36415; 36600; 71010; 71020; 80048; 80053; 80061; 81001; 82330; 82550; 82553; 82803; 82805; 82947; 82962; 83036; 83540; 83550; 83735; 84132; 84295; 84484; 85014; 85018; 85025; 85347; 85610; 85730; 86850; 86900; 86901; 87641; 93005; 93312; 93320; 93325; 93458; 94002; 94640; 94660; 94770; 99285; A9270-GY; C1713; C1751; C1769; C1781; C1887; C1894; C1898; J0583; J0690; J1644; J1940; J2150; J2250; J2370; J2405; J2440; J2720; J3010; J3475; J3480; P9045; P9047; Q9967